=== PATIENT | female | born 1980 ===

== ENCOUNTER → 2021-06-08 15:18 | Outpatient (BNVA) | payer OTHER, SELFPAY | PROVIDERS: PCP Internal Medicine; Visit Provider Nurse Practitioner Family | DX: M47.816 Spondylosis without myelopathy or radiculopathy, lumbar region (principal); M53.3 Sacrococcygeal disorders, not elsewhere classified | CPT/HCPCS: 99202 ==

== ENCOUNTER → 2021-10-21 11:33 | Outpatient (BNVA) | payer OTHER, SELFPAY | PROVIDERS: PCP Internal Medicine; Visit Provider Nurse Practitioner Family | DX: M47.816 Spondylosis without myelopathy or radiculopathy, lumbar region (principal); M53.3 Sacrococcygeal disorders, not elsewhere classified | CPT/HCPCS: 99212 ==

== ENCOUNTER 2021-11-29 06:06 | Outpatient (REF) | payer OTHER, SELFPAY ==
--- NOTE | ~2021-11-29 | FL_ITS ---
EXAMINATION: XR FLUOROSCOPY WITH IMAGES CLINICAL INFORMATION: Exam M53.3 - Sacrococcygeal disorders, not elsewhere classified COMPARISON: None. TECHNIQUE: Fluoroscopy performed by Dr. Ramsey Marroquin. Fluoroscopy time: 0.2 minutes DAP: 4.06 Gycm2 Images: 1 FINDINGS: Spinal needle overlies mid left SI joint. There is contrast in the periarticular soft tissues with probable early intra-articular contrast. No vasculature communication appreciated. FL/FL guidance in treatment room IMPRESSION: Fluoroscopy for pain management procedure.
== END 2021-11-29 06:07 | disposition home or self-care (01) ==
LOC: HO.RADIR 06:06
PROVIDERS: Visit Provider Anesthesiology
DX: M47.816 Spondylosis without myelopathy or radiculopathy, lumbar region (principal); M53.3 Sacrococcygeal disorders, not elsewhere classified
CPT/HCPCS: 27096; J3300; Q9967

== ENCOUNTER → 2022-05-02 11:29 | Outpatient (BNVA) | payer OTHER, SELFPAY | PROVIDERS: PCP Internal Medicine; Visit Provider Nurse Practitioner Family | DX: M53.3 Sacrococcygeal disorders, not elsewhere classified (principal); M62.838 Other muscle spasm | CPT/HCPCS: 99212 ==

== ENCOUNTER 2022-06-16 11:36 | Day surgery (SDC) | payer OTHER, SELFPAY ==
[2022-06-13 10:03] VITALS: BMI 38.2
--- NOTE | 2022-06-15 10:45 | HO.ANESPROP2 ---
Documented by User: Elizabeth Montelongo NP 06/15/22 10:45 HPI - Anesthesia Eval Consult details Narrative: 41yo F for Left Sacroiliac Joint Innerv Stim Trial PMFSH Active Problems Active Problems: All Active Problems (Updated 06/13/22 @ 10:08 by Neisha Sierra RN) Spondylosis of lumbar spine (Acute) Sacroiliac joint pain (Acute) Depression (Acute) Muscle spasm (Acute) Past Medical History Medical History HTN (hypertension) Surgical History Surgical History Hx of tubal ligation Social History Social History (Updated 06/13/22 @ 10:07 by Neisha Sierra RN) Patient Tobacco Use Status: Current everyday Tobacco user Tobacco use type: Cigarette Cigarettes Per Day: 2 Smoked in Last 30 Days: Yes Patient Interested in Nicotine Replacement: No Substance Use Frequency: Daily Are you DNR?: No Advance Directives: No Advance Directives Information Provided: Yes Nutrition Risks: No Nutritional Risk FDLMP: May in the Med Allergies Allergy/AdvReac Type Severity Reaction Status Date / Time No Known Allergies Allergy Verified 05/02/22 11:35 Home Medications Medication Instructions Recorded Confirmed Last Taken Type cetirizine 10 mg tablet 10 mg PO DAILY 05/02/22 06/13/22 Unknown History duloxetine 30 mg capsule,delayed 30 mg PO DAILY 05/02/22 06/13/22 Unknown History release gabapentin 600 mg tablet 600 mg PO BID 05/02/22 06/13/22 Unknown History meloxicam 7.5 mg tablet 7.5 mg PO BID PRN pain 05/02/22 06/13/22 Unknown History trazodone 50 mg tablet 50 mg PO BEDTIME 05/02/22 06/13/22 Unknown History losartan 50 mg tablet 50 mg PO DAILY 06/13/22 06/13/22 Unknown History Exam Exam Date and Time: June 15, 2022 1045 Height,Weight and Vital Signs: Height 5 ft 3 in Weight 97.976 kg Assessment and Plan Assessment Anesthesia Assessment: Chart Reviewed Documented by User: Devin Haney MD 06/16/22 13:53 [facility] Past Medical History Medical History HTN (hypertension) Family History Family history of problems with anesthesia: No Surgical History Surgical History Hx of tubal ligation History of Problems with Anesthesia: No Social History Social History (Updated 06/13/22 @ 10:07 by Neisha Sierra RN) Patient Tobacco Use Status: Current everyday Tobacco user Tobacco use type: Cigarette Cigarettes Per Day: 2 Smoked in Last 30 Days: Yes Patient Interested in Nicotine Replacement: No Substance Use Frequency: Daily Are you DNR?: No Advance Directives: No Advance Directives Information Provided: Yes Nutrition Risks: No Nutritional Risk FDLMP: May in the Meds Allergies Allergy/AdvReac Type Severity Reaction Status Date / Time No Known Allergies Allergy Verified 05/02/22 11:35 Home Medications Medication Instructions Recorded Confirmed Last Taken Type cetirizine 10 mg tablet 10 mg PO DAILY 05/02/22 06/13/22 Unknown History duloxetine 30 mg capsule,delayed 30 mg PO DAILY 05/02/22 06/13/22 Unknown History release gabapentin 600 mg tablet 600 mg PO BID 05/02/22 06/13/22 Unknown History meloxicam 7.5 mg tablet 7.5 mg PO BID PRN pain 05/02/22 06/13/22 Unknown History trazodone 50 mg tablet 50 mg PO BEDTIME 05/02/22 06/13/22 Unknown History losartan 50 mg tablet 50 mg PO DAILY 06/13/22 06/13/22 Unknown History Exam Airway Mallampati Class: III TM Dist: >3cm Neck ROM: Full Loose/Missing/Broken Teeth: Yes and Upper Heart: rrr Lungs: clear Assessment and Plan Final Anesthetic Review Family History of Problems with Anesthesia: No History of Problems with Anesthesia: No NPO: Yes ASA Class: II Final Preanesthetic Review: No Changes in Pt Med Stat, Meds/Allgs Chart Reviewed, Consent Obtained/Reviewed and Anes Risks/Benef Reviewed Patient Risk: Intermediate Procedure Risk: Low Anesthetic Plan Anesthetic Plan: GA Disposition: Standard PACU
--- NOTE | 2022-06-15 15:29 | MHC.SHP ---
Pre-Procedural Eval Section A Date of Service: 06/15/22 The patient is an INPATIENT: No Changes since office visit: Yes Patient answered all questions The History & Physical has been completed within 30 days and I have reviewed it.: No Section B Chief Complaint: sacrococcygeal disorder Details of Present Illness: as above Relevant Family History (Specify if Yes): No Relevant Social History: None Present Medications: see Short Stay Collaborative assessment Medical History: No relevant PMH History of Previous Operations: No relevant previous surgery Allergies: Allergies Allergy/AdvReac Type Severity Reaction Status Date / Time No Known Allergies Allergy Verified 05/02/22 11:35 Review of Systems Sugical H&P ROS: Negative: Cardiovascular, Respiratory, Neurological, Psychiatric, Hem-Onc, Allergic/Immunologic, Gastrointestinal, Genitourinary, Musculoskeletal, Integumentary, Endocrine and Eyes/Ears/Nose/Throat and Yes, Specify: Constitution (morbid obesity) Exam Surgical H&P Exam: Normal: HEENT, Normal: Heart, Normal: Lungs, Normal: Extremities, Normal: Skin and Normal: Neurological and Significant Findings: Abdomen (enlarged 2 to s/q and i/a fat) Plan Diagnosis/Plan: Unchanged I have reviewed the history and physical and performed a pertinent physical examination on my patient. No changes have occurred unless specified.
--- NOTE | ~2022-06-16 | FL_ITS ---
EXAMINATION: XR FLUOROSCOPY WITH IMAGES CLINICAL INFORMATION: Stimulator trial. COMPARISON: November 29, 2021 TECHNIQUE: Fluoroscopy performed by Dr. Ramsey Marroquin. Fluoroscopy time: 0.3 minutes. Cumulative Dose: 20.4 mGy. DAP: 5.51 Gy-cm2. Images: 2. FINDINGS: Intraoperative fluoroscopy demonstrates placement of 2 stimulator wires about the left lateral sacrum with one lying mid sacroiliac joint level and the other just inferior to the sacroiliac joint. FL/FL guidance in OR IMPRESSION: Intraoperative fluoroscopy for pain management procedure.
--- NOTE | 2022-06-16 11:44 | PC.NURSE ---
patient arrived thirty minutes late.
[2022-06-16] MEDS: LORazepam 0.5 MG TABLET 0.25 MG PO (12:40)
[2022-06-16] MEDS: Lactated Ringers 1,000 ML 100 ML IVCONT (12:54)
--- NOTE | 2022-06-16 13:02 | PC.NURSE ---
Patient was very anxious regarding IV insertion today. Dr. Albright assessed patient and patient was given Ativan 0.25mg po. per patient request. Iv inserted by rosemarie Carrero RN with good response from patient.
--- NOTE | 2022-06-16 13:10 | P.OP_ITS ---
Operative Note Operative Note Date of Service: 06/16/22 Narrative: Trial of the sacroiliac joint innervation stimulation stim wave left. Informed consent was thoroughly explained to the patient before moving her to the operating room.? Risks and benefits were explained and all the questions were answered. Patient ? was taken to the operating room, she was positioned prone on the operating table with the pillow under her pelvis.? [employer] [employer] monitors were applied and patient was deeply sedated. Time out was performed delineated correct name and of the patient, site, side and nature of the procedure, risks of DVT and fire, need for antibiotics. Her lower back and buttocks was prepped with ChloraPrep twice, and draped with sterile towels.? Sterilely draped C-arm was brought over the operating field and sq picture of patient's pelvis was demonstrated on the screen.? Attention was concentrated on the left SI joint. The sacral ala on the left was chosen as a target of the needles insertion. 3 cm above the sacral ala projection in the lumbar area injection of the local anesthetic was performed in the skin. Using 11 blade scalpel small judie in the skin was performed. 16 gauge introducer stimwave malleable needle? was inserted through the judie and advanced toward the sacral alae on the right.? After needle met the bone on sacral ala it was redirected slightly posterior and continued to advance alongside the curvature of the sacral bone.? When the tip of the needle reached the end of the projection of the sacroiliac joint inferiorly advancement stops and guitar wire was introduced into the needle.? It went through the needle without difficulties.?Second needle the same gauge 12 cm was inserted medial to the first needle and advanced in similar fashion as above to the S3 - S4 foraminal projection. After that 4 electrode stimulating array lead were inserted through the needle and advanced to the desired position.? The needle was removed and care was taken not to dislodge the leads.? The driving stylet was removed from the lead and it was replaced with stimulating copper wire antenna electrodes.? After that the knots were tied just below the level of the 2nd antenna ? contact.?Two 0-0 silk stitches were applied to the skin to anchor the leads to the skin. Mastisol was applied to the skin a and Steri-Strips was used to fix the stimulating leads to the skin.? Sterile dressing applied, stimulating pad was applied and taped to the skin using Medipore tape. Upon completion of the procedure the patient was awaken she was taken outside of the operating room to recovery room where she recovered uneventfully.
--- NOTE | 2022-06-16 14:14 | P.BOP_ITS ---
Brief Operative Note Date of Service: 06/16/22 Pre-op diagnosis: sacroiliac joint pain Post-op diagnosis: same Procedure: Trial of the Left sacroiliac joint innervation stimulation Stimwave. Implants: none permanent Surgeon: Ramsey Marroquin MD Anesthesia: GLMA Was an Assistant Professor Of Psychology used for this Procedure?: No Estimated blood loss (mL): 1 Pathology: none sent Condition: stable Disposition: PACU
[2022-06-16 14:17] VITALS: BP 156/97; PULSE 86; RESP 16; TEMP 36.2; O2SAT 100
[2022-06-16 14:22] VITALS: BP 169/91; PULSE 73; RESP 16; O2SAT 100
[2022-06-16 14:27] VITALS: BP 140/92; PULSE 72; RESP 16; O2SAT 100
[2022-06-16 14:32] VITALS: BP 137/89; PULSE 73; RESP 16; O2SAT 100
[2022-06-16 14:47] VITALS: BP 120/64; PULSE 64; RESP 16; O2SAT 100
[2022-06-16 15:02] VITALS: BP 150/90; PULSE 71; RESP 16; O2SAT 100
== END 2022-06-16 15:30 | disposition home or self-care (01) ==
PROVIDERS: PCP Internal Medicine; Visit Provider Anesthesiology
PROC: (CPT 64555; principal; 2022-06-16 12:50)
DX: M53.3 Sacrococcygeal disorders, not elsewhere classified (principal); M54.50 Low back pain, unspecified; M62.838 Other muscle spasm; I10 Essential (primary) hypertension; G47.9 Sleep disorder, unspecified; Z79.899 Other long term (current) drug therapy
CPT/HCPCS: 64555; C1778; J0690; J2795

== ENCOUNTER → 2022-06-22 08:58 | Outpatient (BNVA) | payer OTHER, SELFPAY | PROVIDERS: PCP Internal Medicine; Visit Provider Anesthesiology | DX: M53.3 Sacrococcygeal disorders, not elsewhere classified (principal); M62.838 Other muscle spasm | CPT/HCPCS: 99212 ==

== ENCOUNTER 2022-07-27 10:23 | Day surgery (SDC) | payer OTHER, SELFPAY ==
[2022-07-21 11:21] VITALS: BMI 39.3
--- NOTE | 2022-07-26 09:07 | HO.ANESPROP2 ---
Documented by User: Elizabeth Montelongo NP 07/26/22 09:08 HPI - Anesthesia Eval Consult details Narrative: 41yo F for Left Sacroiliac Joint Innerv Stim Implant s/p trial 06/2022 with GA-LMA 4 PMFSH Active Problems Active Problems: All Active Problems (Updated 07/21/22 @ 11:16 by Neisha Sierra RN) Spondylosis of lumbar spine (Acute) Sacroiliac joint pain (Acute) Depression (Acute) Muscle spasm (Acute) Past Medical History Medical History HTN (hypertension) S/P placement of nerve stimulator Family History Family history of problems with anesthesia: No Surgical History Surgical History Hx of tubal ligation History of Problems with Anesthesia: No Social History Social History Patient Tobacco Use Status: Current someday Tobacco user Tobacco use type: Cigarette Cigarettes Per Day: 10 Use of substances other than those prescribed or required for medical reasons: Yes Substance Use Type: Marijuana Are you DNR?: No Advance Directives: No Advance Directives Information Provided: Yes Meds Allergies Allergy/AdvReac Type Severity Reaction Status Date / Time No Known Allergies Allergy Verified 06/22/22 09:15 Home Medications Medication Instructions Recorded Confirmed Last Taken Type cetirizine 10 mg tablet 10 mg PO DAILY 05/02/22 07/21/22 Unknown History duloxetine 30 mg capsule,delayed 30 mg PO DAILY 05/02/22 07/21/22 Unknown History release gabapentin 600 mg tablet 600 mg PO BID 05/02/22 07/21/22 Unknown History meloxicam 7.5 mg tablet 7.5 mg PO BID PRN pain 05/02/22 07/21/22 Unknown History trazodone 50 mg tablet 50 mg PO BEDTIME 05/02/22 07/21/22 Unknown History losartan 50 mg tablet 50 mg PO DAILY 06/13/22 07/21/22 Unknown History Exam Exam Date and Time: July 26, 2022 0907 Height,Weight and Vital Signs: Height 5 ft 3 in Weight 100.811 kg Assessment and Plan Assessment Anesthesia Assessment: Chart Reviewed Final Anesthetic Review Family History of Problems with Anesthesia: No History of Problems with Anesthesia: No Documented by User: Qi De Oliveira MD 07/27/22 10:50 PMFSH Past Medical History Medical History HTN (hypertension) S/P placement of nerve stimulator Functional capacity: independent ambulation Patient : No Surgical History Surgical History Hx of tubal ligation Social History Social History Patient Tobacco Use Status: Current someday Tobacco user Tobacco use type: Cigarette Cigarettes Per Day: 10 Use of substances other than those prescribed or required for medical reasons: Yes Substance Use Type: Marijuana Are you DNR?: No Advance Directives: No Advance Directives Information Provided: Yes Meds Allergies Allergy/AdvReac Type Severity Reaction Status Date / Time No Known Allergies Allergy Verified 06/22/22 09:15 Home Medications Medication Instructions Recorded Confirmed Last Taken Type cetirizine 10 mg tablet 10 mg PO DAILY 05/02/22 07/21/22 Unknown History duloxetine 30 mg capsule,delayed 30 mg PO DAILY 05/02/22 07/21/22 Unknown History release gabapentin 600 mg tablet 600 mg PO BID 05/02/22 07/21/22 Unknown History meloxicam 7.5 mg tablet 7.5 mg PO BID PRN pain 05/02/22 07/21/22 Unknown History trazodone 50 mg tablet 50 mg PO BEDTIME 05/02/22 07/21/22 Unknown History losartan 50 mg tablet 50 mg PO DAILY 06/13/22 07/21/22 Unknown History Exam Airway Mallampati Class: III TM Dist: >3cm Neck ROM: Full Partial: Upper Loose/Missing/Broken Teeth: No (8 and 9 partial) and Upper Heart: RRR Lungs: CTA Assessment and Plan Final Anesthetic Review NPO: Yes ASA Class: III Final Preanesthetic Review: No Changes in Pt Med Stat, Meds/Allgs Chart Reviewed, Consent Obtained/Reviewed and Anes Risks/Benef Reviewed Patient Risk: Intermediate Procedure Risk: Low Anesthetic Plan Anesthetic Plan: GA Disposition: Standard PACU
[2022-07-27] VITALS (10 sets, daily range): BP systolic 115–154; BP diastolic 58–87; PULSE 51–79; RESP 16; TEMP 36.1–36.4; O2SAT 95–100; BMI 37.5
--- NOTE | ~2022-07-27 | FL_ITS ---
EXAMINATION: XR FLUOROSCOPY WITH IMAGES CLINICAL INFORMATION: Stimulator implant. M53.3 - Sacrococcygeal disorders, not elsewhere classified COMPARISON: Fluoroscopic spot views 06/16/2022 TECHNIQUE: Fluoroscopy performed by Dr. Ramsey Marroquin. Fluoroscopy time: 0.5 minutes. Cumulative Dose: 11.0 mGy. DAP: 3.01 Gycm2. Images: 2. FINDINGS: There are 2 stimulator electrodes vertically oriented with distal end overlying the peripheral left sacral wing. Visualized hardware intact. No kinking or defect. FL/FL guidance in OR IMPRESSION: Fluoroscopy for pain management procedure.
[2022-07-27] MEDS: LORazepam 1 MG TABLET PO (11:00)
--- NOTE | 2022-07-27 11:01 | PC.NURSE ---
patient very anxious regarding her iv insertion medicated with ativan prior and warming arm.
--- NOTE | 2022-07-27 11:23 | MHC.SHP ---
Pre-Procedural Eval Section A Date of Service: 07/27/22 Changes since office visit: Yes Patient answered all questions The History & Physical has been completed within 30 days and I have reviewed it.: No Section B Chief Complaint: Sacrococcygeal disorders, not elsewhere classified Details of Present Illness: The the patient is suffering from sacroiliitis had successful trial of bilateral SI joint innervation. Relevant Family History (Specify if Yes): No Relevant Social History: None Present Medications: see Short Stay Collaborative assessment Medical History: No relevant PMH History of Previous Operations: No relevant previous surgery Allergies: Allergies Allergy/AdvReac Type Severity Reaction Status Date / Time No Known Allergies Allergy Verified 06/22/22 09:15 Review of Systems Sugical H&P ROS: Negative: Constitution, Cardiovascular, Respiratory, Neurological, Psychiatric, Hem-Onc, Allergic/Immunologic, Gastrointestinal, Genitourinary, Musculoskeletal, Integumentary, Endocrine and Eyes/Ears/Nose/Throat Exam Surgical H&P Exam: Normal: HEENT, Normal: Heart, Normal: Lungs, Normal: Extremities, Normal: Abdomen, Normal: Skin and Normal: Neurological Plan Diagnosis/Plan: Unchanged I have reviewed the history and physical and performed a pertinent physical examination on my patient. No changes have occurred unless specified.
--- NOTE | 2022-07-27 14:27 | PM.OP ---
Brief Operative Note Date of Service: 07/27/22 Pre-op diagnosis: sacroiliitis, sacroiliac joint pain Post-op diagnosis: same Procedure: implantation of sacroiliac joint innervation stimulation Stimwave. Implants: stimwave stimulating wire #2. Surgeon: Ramsey Marroquin MD Anesthesia: GETA Was an Can Line Operator used for this Procedure?: No Estimated blood loss (mL): 6 Pathology: none sent Condition: stable Disposition: PACU
--- NOTE | 2022-07-27 14:33 | P.OP_ITS ---
Operative Note Operative Note Date of Service: 07/27/22 Narrative: Sacroiliac joint innervation stimulation Stimwave implantation. After obtaining informed consent the patient was brought to the operating room, she was positioned supine on the stretcher ASA m-rs were applied and the patient was induced with GETA. She was transferred on the ORT prone and all pressure points were protected. ?Time-out was performed delineating correct site, side, the nature of the procedure, patient's allergy, preoperative antibiotic.? All operating room staff was participating in OR time-out procedure.? The patient received cefazolin 2 gr. intravenously 30 minutes before the procedure. the patient's entire back? was prepped with ChloraPrep twice. Whole body drape was applied including Ioban film.? Sterilely draped C-arm was brought over the operating field and sq picture of left side of the pelvis was demonstrated on the screen. Attention then was concentrated on the left sacroiliac joint. 4 cm above from the patient's ? Left sacral ala projection the skin was infiltrated in linear horizontal fashion and? 10 blade scalpel was used to make an horizontal incision on the skin 4 cm long. The wound was widened and deepened untill the superficial fascia. 16 g 15 cm introducer malleable needle was inserted through the fascia and advanced to the? left sacral ala under interim posterior and lateral x-ray views.. when the position of the tip of the introducer needle was verified on the lateral view above the level of the bone,? the needle advanced alongside the sacral bone curvature following the direction of the silhouette of the sacroiliac joint.? permanent stimulator catheter was inserted and advanced in the needle? When the body of the lead? reached adequate position the stirring stilet was removed from the lead and a conduction copper wire was inserted into the lead and advanced until resistance was met. The introducer needle was withdrawn with care taken not to dislodge the stimulating lead. After that - one more stimulating lead was inserted into slightly more medial position and more proximal position 1 cm to the lateral side from the first stimulating lead using the same technique as described above.? both leads were sutured to superficial fascia using 0 Tycron intermittent sutures for each of the lead. The wound was irrigated with vancomycin containing normal saline. After that in the upper lumbar paraspinal area? local anesthetic was injected into the skin a nd the vertical Five cm incision was made using 10 blade scalpel. This wound was widened and deepened using dull dissection and hemostasis was performed using electrocautery. After that this wound was irrigated with vancomycin containing normal saline and? tunneling device was used to connect the two wounds. The tales of the stimulating electrodes were tunneled from the distal wound to the proximal wound and tunneling device was split and withdrawn. Care was taken to form straight position of the stimulating leads. After that the ends of the plastic leads were tide on itself and then the coil was? formed from the free ends of the? two plastic leads using free? Tycron suture knots. the coil was inserted into the wound. After that both wounds were irrigated again, they were closed using ? 0 Polysorb sutures and after that 0-2 polisorb sutures were used to approximate the edges of the skin., ? Steri-Strips were applied to the skin level. ?sterile dressings with bacitracin were affixed on the both wounds. The patient was awaken, transferred to PACU, where she recovered uneventfully.
--- NOTE | 2022-07-27 14:33 | HO.POSTANES ---
Post Anesthesia Evaluation Post Anesthesia Evaluation Anesthesia: General Endotracheal-GETA Mental Status: Awake Pain Control: Satisfactory Nausea/Vomiting: None Hydration: Adequate Anesthesia-Related Issues: No Anes. Related Issues
[2022-07-27] MEDS: oxyCODONE HCl Immed Release 5 MG TABLET PO (15:27)
[2022-07-27] MEDS: fentaNYL citrate/PF 100 MCG/2 ML VIAL 25 MCG IVPUSH (15:34)
== END 2022-07-27 15:51 | disposition home or self-care (01) ==
PROVIDERS: PCP Internal Medicine; Visit Provider Anesthesiology
PROC: (CPT 64555; principal; 2022-07-27 11:30)
DX: M53.3 Sacrococcygeal disorders, not elsewhere classified (principal); M46.1 Sacroiliitis, not elsewhere classified; I10 Essential (primary) hypertension; Z79.899 Other long term (current) drug therapy; F17.210 Nicotine dependence, cigarettes, uncomplicated
CPT/HCPCS: 64555 ×2; C1816; J0690; J1100; J1885; J2250; J2405; J2795; J3010; J3370

== ENCOUNTER → 2022-08-02 11:23 | Outpatient (BNVA) | payer OTHER, SELFPAY | PROVIDERS: PCP Internal Medicine; Visit Provider Anesthesiology | DX: M53.3 Sacrococcygeal disorders, not elsewhere classified (principal); M62.838 Other muscle spasm | CPT/HCPCS: 99212 ==

== ENCOUNTER → 2022-10-04 13:33 | Outpatient (BNVA) | payer OTHER, SELFPAY | PROVIDERS: PCP Internal Medicine; Visit Provider Anesthesiology | DX: M53.3 Sacrococcygeal disorders, not elsewhere classified (principal); M62.838 Other muscle spasm | CPT/HCPCS: 99212 ==

== ENCOUNTER 2022-11-03 10:22 | Outpatient (REF) | payer OTHER, SELFPAY ==
--- NOTE | ~2022-11-03 | XR_ITS ---
EXAMINATION: XR PELVIS CLINICAL INFORMATION: Sacrococcygeal disorder COMPARISON: None TECHNIQUE: AP view of the pelvis. FINDINGS: There are 2 electrode wires embedded in the soft tissue along the dorsal aspect of the left sacrum.The bones and soft tissues are normal. No fracture. Sacroiliac and hip joints are normal. Pubic symphysis is normal. No abnormal soft tissue calcifications. Narrowing of disc spaces L4-L5 and L5-S1 suggests underlying degenerative disc disease. XR/XR pelvis 1-2V IMPRESSION: * There are 2 electrode wires embedded in the soft tissue along the dorsal aspect of the left sacrum. * Narrowing of disc spaces lower lumbar spine suggest underlying degenerative disc disease.
== END 2022-11-03 10:23 | disposition home or self-care (01) ==
LOC: HO.XRAY 10:22
PROVIDERS: PCP Internal Medicine; Visit Provider Anesthesiology
DX: M53.3 Sacrococcygeal disorders, not elsewhere classified (principal)
CPT/HCPCS: 72170

== ENCOUNTER → 2022-11-06 12:12 | Outpatient (BNVA) | payer OTHER, SELFPAY | PROVIDERS: PCP Internal Medicine; Visit Provider Anesthesiology | DX: Z13.89 Encounter for screening for other disorder (principal) ==

== ENCOUNTER → 2022-12-08 10:26 | Day surgery (SDC) | payer OTHER, SELFPAY ==
--- NOTE | 2022-12-07 13:22 | P.CONAN_ITS ---
HPI - Anesthesia Eval Consult details Narrative: Cx DOS 42yo F for Left Sacroiliac Joint Stimwave Revision s/p implant 07/2022 with GA-ETT 7 (Glidescope, small mouth, ? bronchospasm during intubation - anesthesia record on chart. Albuterol UDN preop ordered for 12/08/22.) PMFSH Active Problems Active Problems: All Active Problems (Updated 06/13/22 @ 10:08 by Neisha Sierra, PATRICIA) Spondylosis of lumbar spine (Acute) Sacroiliac joint pain (Acute) Depression (Acute) Muscle spasm (Acute) Past Medical History Medical History HTN (hypertension) Family History Family history of problems with anesthesia: No Surgical History Surgical History (Updated 12/11/22 @ 17:19 by Constance Gilliland RN) Hx of tubal ligation S/P placement of nerve stimulator History of Problems with Anesthesia: No Social History Social History Patient Tobacco Use Status: Current everyday Tobacco user Tobacco use type: Cigarette Cigarettes Per Day: 10 Substance Use Type: Marijuana Substance Use Frequency: Daily Are you DNR?: No Advance Directives: No Advance Directives Information Provided: Yes Nutrition Risks: No Nutritional Risk Meds Allergies Allergy/AdvReac Type Severity Reaction Status Date / Time No Known Allergies Allergy Verified 12/08/22 10:25 Home Medications Medication Instructions Recorded Confirmed Last Taken Type cetirizine 10 mg tablet 10 mg PO DAILY 05/02/22 12/04/22 Unknown History duloxetine 30 mg capsule,delayed 30 mg PO DAILY 05/02/22 12/04/22 Unknown History release gabapentin 600 mg tablet 600 mg PO BID 05/02/22 12/04/22 Unknown History meloxicam 7.5 mg tablet 7.5 mg PO BID PRN pain 05/02/22 12/04/22 Unknown History losartan 50 mg tablet 50 mg PO DAILY 06/13/22 12/04/22 Unknown History bupropion HCl 75 mg tablet 75 mg PO QAM 10/04/22 12/04/22 Unknown History trazodone 150 mg tablet 150 mg PO BEDTIME 10/04/22 12/04/22 Unknown History budesonide-formoterol HFA 160 inhalation 12/04/22 12/04/22 Unknown History mcg-4.5 mcg/actuation aerosol inhaler (Symbicort) ferrous sulfate 325 mg (65 mg 1 tab PO DAILY 12/04/22 12/04/22 Unknown History iron) tablet fluticasone propionate 50 2 spray intranasal DAILY 12/04/22 12/04/22 Unknown Hi story mcg/actuation nasal spray,suspension Exam Exam Date and Time: December 07, 2022 132 Assessment and Plan Assessment Anesthesia Assessment: Chart Reviewed Final Anesthetic Review Family History of Problems with Anesthesia: No History of Problems with Anesthesia: No
[2022-12-08] MEDS: Lactated Ringers 1,000 ML 100 ML IVCONT (10:31)
[2022-12-08 10:38] VITALS: BMI 36.5
[2022-12-08] MEDS: Albuterol Sulfate (0.083%) 2.5 MG/3 ML VIAL.NEB INHALE (10:44)
[2022-12-08 10:45] VITALS: PULSE 68; RESP 18; O2SAT 97
[2022-12-08 10:54] VITALS: BP 148/84; PULSE 67; RESP 18; TEMP 36.8; O2SAT 100
--- NOTE | 2022-12-08 11:08 | MHC.SHP ---
Pre-Procedural Eval Section A Date of Service: 12/08/22 The patient is an INPATIENT: No Changes since office visit: Yes Patient answered all questions The History & Physical has been completed within 30 days and I have reviewed it.: No Section B Chief Complaint: Sacrococcygeal disorders, not elsewhere classified Details of Present Illness: as above Relevant Family History (Specify if Yes): No Relevant Social History: None Present Medications: None Medical History: No relevant PMH History of Previous Operations: No relevant previous surgery Allergies: Allergies Allergy/AdvReac Type Severity Reaction Status Date / Time No Known Allergies Allergy Verified 12/08/22 10:25 Review of Systems Sugical H&P ROS: Negative: Constitution, Cardiovascular, Respiratory, Neurological, Psychiatric, Hem-Onc, Allergic/Immunologic, Gastrointestinal, Genitourinary, Musculoskeletal, Integumentary, Endocrine and Eyes/Ears/Nose/Throat Exam Surgical H&P Exam: Normal: HEENT, Normal: Heart, Normal: Lungs, Normal: Extremities, Normal: Abdomen, Normal: Skin and Normal: Neurological Plan Diagnosis/Plan: Unchanged I have reviewed the history and physical and performed a pertinent physical examination on my patient. No changes have occurred unless specified. Time Spent With Patient Time: Total time managing care of this patient today ____ minutes.
--- NOTE | 2022-12-08 11:40 | PC.NURSE ---
anesthesia and surgeon made decision to cancel procedure today. Patient will be re-scheduled.
== END ==
PROVIDERS: PCP Internal Medicine; Visit Provider Anesthesiology
DX: M53.3 Sacrococcygeal disorders, not elsewhere classified (principal); Z53.8 Procedure and treatment not carried out for other reasons; Z96.82 Presence of neurostimulator; I10 Essential (primary) hypertension
CPT/HCPCS: 94640; J0690; J2250; J2795; J3010; J3370

== ENCOUNTER 2024-02-06 11:34 | Outpatient (AMB) | payer OTHER, SELFPAY ==
--- NOTE | 2024-02-06 11:38 | MHC.OFFVIS ---
Vital Signs 02/06/24 11:48 Height 5 ft 3 in Weight 213 lb BMI 37.7 BP 160/90 H Blood Pressure Location Lt brachial Position Sitting Respiration 16 Pulse 82 Pulse Source Pulse Oximeter Pulse Oximetry (%) 97 Oxygen Delivery Method Room Air Intake Visit Reasons: Back pain Intake Note: Patient comes in for back pain. Reports pain 06/17. Allergies No Known Allergies Allergy (Verified 02/06/24 11:51) HPI Comments Details: Man is back in my office today requesting again to perform revision of the sacroiliac joint stimulation curonix device. In 2021 she had a trial with excellent results of spinal cord stimulation of the device stim wave/cure on X. She went for the implant. Unfortunately she lives alone and she is unable to follow the mobility limitations which are imposed on the patient after this procedure. So eventually she dislodged the electrodes from the appropriate position. She was in the past scheduled 2 times for the revision however she did not come for the procedure. I understand that in her situation it is difficult to commit herself for the surgery while knowing that most likely the intervention will fail because of her inability to maintain appropriate lifestyle and mobility limitations after the procedure. And yet it is hard for me to excuse this patient's not showing for the procedure without even giving us any noticed. She is also asking me to start her on opioid medications. I explained to her that we have chronic opioid program. I explained to her that she would need to sign the contract. I agreed to prescribe her opioids as soon as she is under contract and her UDS is tested. However when I gave her UDS to be tested she immediately remembered that her ride is going to be picking up her very soon and she is unable to go for the right. I offered her to start her on Celebrex. I explained her risks and benefits of the Celebrex. Her risks are probably not very high because she is 43 years old and in her age she is still protected by female hormones. I will put her on my schedule to perform the revision. I honestly told her that she must show up for this procedure. If she will not show up for 3rd time I will not be able to justify the loss of the OR time and I will not be able to schedule her for revision ever again. [facility] Medical History HTN (hypertension) Surgical History (Updated 12/11/22 @ 17:19 by Constance Gilliland RN) S/P placement of nerve stimulator Hx of tubal ligation Social History Comment: pt reports baseline pain at home is 07/17 Patient Tobacco Use Status: Current everyday Tobacco user Tobacco use type: Cigarette Cigarettes Per Day: 10 Substance Use Type: Marijuana Review of Systems Const All systems reviewed & are unremarkable except as noted in HPI and below ENT Reports Normal hearing present Neuro Reports Normal hearing present, Denies Abnormal speech present and Denies confusion Psych Denies confusion Physical Exam Vital Signs: Last Vital Signs Pulse 82 02/06/24 11:48 Resp 16 02/06/24 11:48 BP 160/90 H 02/06/24 11:48 Pulse Ox 97 02/06/24 11:48 Oxygen Delivery Method Room Air 02/06/24 11:48 BMI result Body Mass Index 37.7 Const General: cooperative, healthy appearing, no acute distress, alert and well groomed; No confusion Orientation/consciousness: patient oriented x3 and No confusion HEENT Head: Yes normocephalic and Yes atraumatic Ears: hearing grossly normal bilaterally Eyes General: appearance normal, both eyes and all related structures Eyelids: Yes eyelids normal Pupils: Equal, round and reactive pupils present EOM: EOMs intact bilaterally Neck Neck: Yes normal visual inspection and Yes no JVD Resp Effort & Inspection: normal respiratory effort, able to speak in complete sentences and no audible wheezes Cardio Jugular venous distension: no JVD Neuro General: patient oriented x3, moves all extremities and No confusion Cranial nerves: Yes Equal, round and reactive pupils present and Yes Normal hearing present Cognition (Neuro): normal cognition Speech: No Abnormal speech present Psych Appearance: grossly normal Mental Status: mental status grossly normal Speech and movement: Normal speech and movement present Affect: normal affect Attitude: cooperative Thought process: Normal thought process present Thought content: Normal thought content present Insight: Good insight present (Psych) Judgement: Good judgement present (Psych) Assessment & Plan Assessment & Plan (1) Sacroiliac joint pain: Code(s): M53.3 - Sacrococcygeal disorders, not elsewhere classified Category: Medical (2) Muscle spasm: Code(s): M62.838 - Other muscle spasm Category: Medical Plan The stimulation revision will be scheduled in the operating room for cure on X. I will prescribe her Celebrex to help her pain. Next appointment is needed. Medications: New celecoxib (Celebrex) 200 mg (2 x 100 mg) PO BID 120 caps 1RF 30 days Discontinued diclofenac potassium Discontinued Reason: Doctor's Order 50 mg PO TID PRN 90 tabs 0RF pain Coding Level of Care Code Est Pt Level 3 (54237) Diagnoses Sacroiliac joint pain M53.3 Muscle spasm M62.838
[2024-02-06 11:48] VITALS: BP 160/90; PULSE 82; RESP 16; O2SAT 97; BMI 37.7
== END 2024-02-06 11:56 | disposition home or self-care (01) ==
PROVIDERS: PCP Internal Medicine; Visit Provider Anesthesiology
DX: M53.3 Sacrococcygeal disorders, not elsewhere classified (principal); M62.838 Other muscle spasm
CPT/HCPCS: 99213

== ENCOUNTER → 2024-02-06 11:34 | Outpatient (BNVA) | payer OTHER, SELFPAY | PROVIDERS: PCP Internal Medicine; Visit Provider Anesthesiology | DX: M53.3 Sacrococcygeal disorders, not elsewhere classified (principal); M62.838 Other muscle spasm | CPT/HCPCS: 99212 ==

== ENCOUNTER 2024-04-30 11:51 | Outpatient (AMB) | payer OTHER, SELFPAY ==
--- NOTE | 2024-04-30 11:52 | A.OFFVIS_ITS ---
Vital Signs 04/30/24 11:57 Height 5 ft 3 in Weight 213 lb BMI 37.7 BP 140/90 H Blood Pressure Location Lt brachial Position Sitting Respiration 16 Pulse 69 Pulse Source Pulse Oximeter Pulse Oximetry (%) 100 Oxygen Delivery Method Room Air Intake Visit Reasons: Per Intake Note: patient comes for follow up. Reports pain 06/17. Allergies No Known Allergies Allergy (Verified 04/30/24 11:56) HPI Comments Details: Man is back in my office today requesting again to remove of the sacroiliac joint stimulation curonix device. In 2021 she had a trial with excellent results of spinal cord stimulation of the device stim wave/cure on X. She went for the implant. Unfortunately she lives alone and she is unable to follow the mobility limitations which are imposed on the patient after this procedure. So eventually she dislodged the electrodes from the appropriate position. She was in the past scheduled 3 times for the revision however she did not come for the procedure. I understand that in her situation it is difficult to commit herself for the surgery while knowing that most likely the intervention will fail because of her inability to maintain appropriate lifestyle and mobility limitations after the procedure. We agreed that I will remove the device and after that patient will be able to address the issue of sacroiliac joint pain via injections with me or elsewhere. We did not discuss chronic opioid program today. [facility] Medical History HTN (hypertension) Surgical History (Updated 12/11/22 @ 17:19 by Constance Gilliland RN) S/P placement of nerve stimulator Hx of tubal ligation Social History Comment: pt reports baseline pain at home is 07/17 Patient Tobacco Use Status: Current everyday Tobacco user Tobacco use type: Cigarette Cigarettes Per Day: 10 Substance Use Type: Marijuana Review of Systems Const All systems reviewed & are unremarkable except as noted in HPI and below ENT Reports Normal hearing present Neuro Reports Normal hearing present, Denies Abnormal speech present and Denies confusion Psych Denies confusion Physical Exam Vital Signs: Last Vital Signs Pulse 69 04/30/24 11:57 Resp 16 04/30/24 11:57 BP 140/90 H 04/30/24 11:57 Pulse Ox 100 04/30/24 11:57 Oxygen Delivery Method Room Air 04/30/24 11:57 BMI result Body Mass Index 37.7 Const General: cooperative, healthy appearing, no acute distress, alert and well groomed; No confusion Orientation/consciousness: patient oriented x3 and No confusion HEENT Head: Yes normocephalic and Yes atraumatic Ears: hearing grossly normal bilaterally Eyes General: appearance normal, both eyes and all related structures Eyelids: Yes eyelids normal Pupils: Equal, round and reactive pupils present EOM: EOMs intact bilaterally Neck Neck: Yes normal visual inspection and Yes no JVD Resp Effort & Inspection: normal respiratory effort, able to speak in complete sentences and no audible wheezes Cardio Jugular venous distension: no JVD Neuro General: patient oriented x3, moves all extremities and No confusion Cranial nerves: Yes Equal, round and reactive pupils present and Yes Normal hearing present Cognition (Neuro): normal cognition Speech: No Abnormal speech present Psych Appearance: grossly normal Mental Status: mental status grossly normal Speech and movement: Normal speech and movement present Affect: normal affect Attitude: cooperative Thought process: Normal thought process present Thought content: Normal thought content present Insight: Good insight present (Psych) Judgement: Good judgement present (Psych) Assessment & Plan Assessment & Plan (1) Sacroiliac joint pain: Code(s): M53.3 - Sacrococcygeal disorders, not elsewhere classified Category: Medical (2) Muscle spasm: Code(s): M62.838 - Other muscle spasm Category: Medical Plan The stimulation wire removal will be scheduled as soon as possible. Appointment after that as needed. Coding Level of Care Code Est Pt Level 3 (69438) Diagnoses Sacroiliac joint pain M53.3 Muscle spasm M62.838
[2024-04-30 11:57] VITALS: BP 140/90; PULSE 69; RESP 16; O2SAT 100; BMI 37.7
== END 2024-04-30 12:02 | disposition home or self-care (01) ==
PROVIDERS: PCP Internal Medicine; Visit Provider Anesthesiology
DX: M53.3 Sacrococcygeal disorders, not elsewhere classified (principal); M62.838 Other muscle spasm
CPT/HCPCS: 99213

== ENCOUNTER → 2024-04-30 11:51 | Outpatient (BNVA) | payer OTHER, SELFPAY | PROVIDERS: PCP Internal Medicine; Visit Provider Anesthesiology | DX: M53.3 Sacrococcygeal disorders, not elsewhere classified (principal); M62.838 Other muscle spasm; Z96.82 Presence of neurostimulator | CPT/HCPCS: 99212 ==

== ENCOUNTER 2024-12-18 11:19 | Outpatient (AMB) | payer OTHER, SELFPAY ==
[2024-12-18 11:22] VITALS: BP 159/101; PULSE 78; O2SAT 98; BMI 37.2
--- NOTE | 2024-12-18 11:22 | A.OFFVIS_ITS ---
Vital Signs 12/18/24 11:22 Height 5 ft 3 in Weight 210 lb 4 oz BMI 37.2 BP 159/101 H Blood Pressure Location Rt brachial Position Sitting Pulse 78 Pulse Source Pulse Oximeter Pulse Oximetry (%) 98 Oxygen Delivery Method Room Air Intake Visit Reasons: Explant PNS discussion/franky from 12/04 Allergies No Known Allergies Allergy (Verified 12/18/24 11:22) HPI Comments Details: Man is back in my office today requesting again to remove of the sacroiliac joint stimulation curonix device. In 2021 she had a trial with excellent results of spinal cord stimulation of the device stim wave/cure on X. She went for the implant. Unfortunately she lives alone and she is unable to follow the mobility limitations which are imposed on the patient after this procedure. So eventually she dislodged the electrodes from the appropriate position. She was in the past scheduled 3 times for the revision however she did not come for the procedure. I understand that in her situation it is difficult to commit herself for the surgery while knowing that most likely the intervention will fail because of her inability to maintain appropriate lifestyle and mobility limitations after the procedure. I already 1 time attempted to schedule her for the removal of the device however she cancel the procedure. Now she wants me to reschedule her again for removal of the sprint PNS. This will be a 2nd time I am scheduling removal of the sprint PNS. [facility] Medical History HTN (hypertension) Surgical History S/P placement of nerve stimulator Hx of tubal ligation Social History Comment: pt reports baseline pain at home is 10/10 Patient Tobacco Use Status: Current everyday Tobacco user Tobacco use type: Cigarette Cigarettes Per Day: 10 Substance Use Type: Marijuana Review of Systems Const All systems reviewed & are unremarkable except as noted in HPI and below ENT Reports Normal hearing present Neuro Reports Normal hearing present, Denies Abnormal speech present and Denies confusion Psych Denies confusion Physical Exam Vital Signs: Last Vital Signs Pulse 78 12/18/24 11:22 BP 159/101 H 12/18/24 11:22 Pulse Ox 98 12/18/24 11:22 Oxygen Delivery Method Room Air 12/18/24 11:22 BMI result Body Mass Index 37.2 Const General: cooperative, healthy appearing, no acute distress, alert and well groomed; No confusion Orientation/consciousness: patient oriented x3 and No confusion HEENT Head: Yes normocephalic and Yes atraumatic Ears: hearing grossly normal bilaterally Eyes General: appearance normal, both eyes and all related structures Eyelids: Yes eyelids normal Pupils: Equal, round and reactive pupils present EOM: EOMs intact bilaterally Neck Neck: Yes normal visual inspection and Yes no JVD Resp Effort & Inspection: normal respiratory effort, able to speak in complete sentences and no audible wheezes Cardio Jugular venous distension: no JVD Neuro General: patient oriented x3, moves all extremities and No confusion Cranial nerves: Yes Equal, round and reactive pupils present and Yes Normal hearing present Cognition (Neuro): normal cognition Speech: No Abnormal speech present Psych Appearance: grossly normal Mental Status: mental status grossly normal Speech and movement: Normal speech and movement present Affect: normal affect Attitude: cooperative Thought process: Normal thought process present Thought content: Normal thought content present Insight: Good insight present (Psych) Judgement: Good judgement present (Psych) Assessment & Plan Assessment & Plan (1) Sacroiliac joint pain: Code(s): M53.3 - Sacrococcygeal disorders, not elsewhere classified Category: Medical (2) Muscle spasm: Code(s): M62.838 - Other muscle spasm Category: Medical Plan The stimulation wire removal will be scheduled as soon as possible. This will be 2nd time scheduling the removal. Before that she is scheduled revision 3 times and 3 times she cancel the revision. Social circumstances are to blame see as above. Coding Level of Care Code Est Pt Level 3 (90610) Diagnoses Sacroiliac joint pain M53.3 Muscle spasm M62.838
--- OUTSIDE RECORDS SUMMARY | 2024-12-18 14:32 | XMS_ITS | Clinical Summary ---
Author Organization [address] [facility] Address [address] [place] [address] Phone Care Team Providers Care Forging Die Sinker Name Role Phone Ha Maier MD Primary Care Provider [phone] Allergies No known active allergies Medications albuterol sulfate (ProAir RespiClick) 90 mcg/actuation aerosol powdr breath activated Inhale 108 mcg into the lungs 4 times daily as needed (wheezing). 05/12/2022 Active cetirizine (ZyrTEC) 10 mg tablet Take 1 Tablet by mouth daily for 360 days. 02/12/2023 Active ferrous sulfate 325 mg (65 mg elemental iron) tablet Take 1 Tablet by mouth daily. 03/10/2024 Active losartan (COZAAR) 50 mg tablet Take 1 Tablet by mouth daily. 03/10/2024 Active mirtazapine (REMERON) 45 mg tablet TAKE 1 TABLET BY MOUTH EVERYDAY AT BEDTIME 01/31/2024 Active sertraline (ZOLOFT) 50 mg tablet 1 p.o. daily 05/02/2023 Active tiZANidine (ZANAFLEX) 4 mg tablet TAKE 1 TABLET BY MOUTH DAILY NEEDED FOR MUSCLE SPASMS FOR UP TO 30 DAYS. 01/28/2024 Active polyethylene glycol (Miralax) 17 gram/dose oral powder Take 17 g by mouth 1 (one) time each day if needed for constipation. 517 g 3 09/11/2024 Active Active Problems Problem Noted Date Diagnosed Date Dyspnea on exertion 05/11/2022 Overview (07/04/2024): Last Assessment & Plan: Patient does not have COPD. Although it could be asthma, she is not using the medications and the breathing test did not show response to bronchodilator. It could be anxiety but I advised her to use Dulera 1 puff twice a day for a month until we clarify her diagnosis. Advised to quit smoking. Sleep disorder 05/11/2022 Overview (07/04/2024): Last Assessment & Plan: Pending results of sleep study. Patient has an elevated [place] scale. She may need CPAP. Snoring 08/28/2020 Overview (07/04/2024): 08/2020 Home Sleep Study did not reveal sleep apnea or nocturnal hypoxia. Bilateral sacroiliitis 11/12/2017 Chronic bilateral low back pain without sciatica 11/12/2017 Eczema 08/21/2017 Marijuana use 11/24/2016 Anxiety 05/25/2016 Major depressive disorder, recurrent episode Surgical History Surgery Date Site/Laterality Comments SECTION PROCEDURE: [place] DELIVERY ONLY; COMMENT: x3 TUBAL LIGATION 2011 PROCEDURE: HISTORICAL TUBAL LIGATION Medical History Medical History Date Comments Major depressive disorder, r ecurrent episode (CMS/HCC) 05/25/2016 DX:Major depressive disorder , recurrent episode (HCC) Tobacco abuse 05/25/2016 DX:Tobacco abuse Eczema 08/21/2017 DX:Eczema Anxiety 05/25/2016 DX:Anxiety Marijuana use 11/24/2016 DX:Marijuana use Alcohol use 11/24/2016 DX:Alcohol use; COMMENT: More than 4 drinks per week. Bilateral sacroiliitis (CMS/HCC) 11/12/2017 DX:Bilateral sacroiliitis (HCC) Chronic bilateral low back p ain without sciatica 11/12/2017 DX:Chronic bilateral low wanda k pain without sciatica Essential hypertension DX:Essent ial hypertension Asthma DX:Asthma Family History Medical History Relation Name Comments Dementia Mother's side Relation Name Status Comments Daughter Alive x5 Father drugs Maternal Grandfather dementi a Maternal Grandmother dementi a Mother Alive diabetes Mother's side Paternal Grandfather Alive Paternal Grandmother Sister Alive x2 Son Alive Social History Tobacco Use Types Packs/Day Years Used Date Smoking Tobacco: Some Days Smokeless Tobacco: Never Alcohol Use Standard Drinks/Week Comments Yes 1.7 (1 standard drink = 0.6 oz p ure alcohol) Comments Unknown Sex and Gender Information Value Date Recorded Sex Assigned at Not on file Legal Sex Female 5:48 PM EST Gender Identity Not on file Sexual Orientation Not on file Obstetrics History Last Filed Vital Signs Vital Sign Reading Time Taken Comments Blood Pressure 134/80 09/11/2024 11:10 AM EST Pulse 70 09/11/2024 11:10 AM EST Temperature 36.3 ??C (97.4 ??F) 09/11/2024 1 1:10 AM EST Respiratory Rate - - Oxygen Saturation 98% 09/11/2024 11: 10 AM EST Inhaled Oxygen Concentration - - Weight 94.3 kg (207 lb 12.8 oz) 024 11:10 AM EST Height 161.9 cm (5' 3.75 ) 03/10/2024 1:08 PM ED T Body Mass Index 35.95 03/10/2024 1:08 PM EDT Plan of Treatment Upcoming Encounters Date Type Department Care Team (Late st Contact Info) Description 02/19/2025 8:15 AM EDT Office Visit Bariatric Surgery - [place] [address] [facility] [address] [place] [address] Sheldon Tello MD [address] [facility] [address] [place] [address] Health Maintenance Due Date Last Done Comments Breast Cancer Screening 1980 Hepatitis B Vaccines (1 of 3 - 19+ 3-dose series) 1999 Pneumococcal Vaccine: Pediatrics (0 to 5 Years) and At-Risk Patients (6 to 64 Years) (1 of 2 - PCV) 1999 Cervical Cancer Screening: P ap Smear 06/05/2019 06/05/2016, 06/05/2016 DTaP,Tdap,and Td Vaccines (2 - Td or Tdap) 05/26/2020 05/26/2010 Social Influencers of Health Screening 09/09/2022 COVID-19 Vaccine (2 - 2023-2 5 season) 2024 11/02/2022 Influenza Vaccine (#1) 2024 Depression Screening 04/04/2025 04/04/2024 Hypertension/CHF/CAD Annual BMP Blood Test 04/04/2025 04/04/2024, 04/04/2024 Cholesterol Screening (Lipid Panel) 04/04/2029 04/04/2024, 04/04/2024 HIV Screening Completed 02/26/2018 Hepatitis C Screening Completed 02/26/2018 HIB Vaccines Aged Out No longer eligi ble based on patient's age to complete this topic HPV Vaccines Aged Out No longer eligi ble based on patient's age to complete this topic Hepatitis A Vaccines Aged Out No long er eligible based on patient's age to complete this topic IPV Vaccines Aged Out No longer eligi ble based on patient's age to complete this topic MMR Vaccines Aged Out No longer eligi ble based on patient's age to complete this topic Meningococcal ACWY Vaccine Aged Out N o longer eligible based on patient's age to complete this topic Meningococcal B Vacine Aged Out No lo nger eligible based on patient's age to complete this topic RSV Immunization Patients Under 20 months Aged Out No longer eligible b ased on patient's age to complete this topic Varicella Vaccines Aged Out No longer eligible based on patient's age to complete this topic Procedures Procedure Name Priority Date/Time Associated Diagnosis Comments DEPRESSION SCREENING Routine 04/04/2024 ANNUAL BMP BLOOD TEST Routine 04/04/2024 LIPID PANEL Routine 04/04/2024 HEPATITIS C SCREENING Routine 02/26/2018 HIV SCREENING Routine 02/26/2018 HPV Routine 06/05/2016 from Last 3 Months or Most Recently Relevant to Health Maintenance Results * Annual BMP Blood Test (04/04/2024) Annual BMP Blood Test Abstracted us Historical Provider HEALTH MAINTENANCE Final Result * Depression Screening (04/04/2024) Pathologist [facility] Depression Screening Abstracted Historical Provider HEALTH MAINTENANCE Final Result * Lipid panel (04/04/2024) [facility] LDL/HDL Ratio 3 0 - 4 Triglycerides 100 0 - 150 mg/dL Cholesterol 146 0 - 200 mg/dL HDL 43 >=40 mg/dL LDL Cholesterol 83 0 - 100 mg/dL Blood Venous blood specimen / Unknown [facility] Provider LAB BLOOD ORDERABLES Sophia l Result * HIV Screening (02/26/2018) [facility] HIV Screening Abstracted [facility] Provider HEALTH MAINTENANCE Final Result * Hepatitis C Screening (02/26/2018) [facility] Hepatitis C Screening Abstracted [facility] Provider HEALTH MAINTENANCE Final Result * Cervical Cancer Screening: HPV (06/05/2016) [facility] Cervical Cancer Screening: HPV Negatie, Abstracted [facility] Provider HEALTH MAINTENANCE Final Result from Last 3 Months or Most Recently Relevant to Health Maintenance Insurance [facility] [place] [address] Care Teams Forging Die Sinker Relationship Specialty Start Date End Date Ha Maier MD PCP - General Internal Medicine 08/06/18
== END 2024-12-18 11:53 | disposition home or self-care (01) ==
LOC: HO.PMC 11:19
PROVIDERS: PCP Internal Medicine; Visit Provider Anesthesiology
DX: M53.3 Sacrococcygeal disorders, not elsewhere classified (principal); M62.838 Other muscle spasm
CPT/HCPCS: 99213

== ENCOUNTER → 2024-12-18 11:19 | Outpatient (BNVA) | payer OTHER, SELFPAY | PROVIDERS: PCP Internal Medicine; Visit Provider Anesthesiology | DX: M53.3 Sacrococcygeal disorders, not elsewhere classified (principal); M62.838 Other muscle spasm | CPT/HCPCS: 99212 ==